=== PATIENT | male | born 1965 | race Two or more races ===

== ENCOUNTER 2017-08-25 08:23 | Day surgery (SDC) | payer MEDICAID ==
[2017-08-18 14:49] LABS: Basophils # (auto) 0 uL; Basophils % (auto) 0.4 % (0.0-2.0); Eosinophils # (auto) 0.1 uL; Eosinophils % (auto) 0.9 % (0.0-7.0); Hematocrit 46.9 % (41.0-53.0); Hemoglobin 16.4 g/dL (13.5-17.5); Lymphocytes # (auto) 2.3 uL; Lymphocytes % (auto) 29.9 % (10.0-50.0); Mean Corpuscular Hemoglobin 32.5 pg (28.0-32.0); Mean Corpuscular Hgb Conc. 34.9 g/dL (32.0-36.0); Mean Corpuscular Volume 93.1 fL (80.0-100.0); Mean Platelet Volume 7.4 fL (6.9-10.8); Monocytes # (auto) 0.5 uL; Monocytes % (auto) 6.5 % (0.0-12.0); Neutrophils # (auto) 4.7 uL; Neutrophils % (auto) 62.3 % (37.0-80.0); Platelet Count (auto) 274 10^3/uL (140-450); Red Cell Distribution Width 13.7 % (11.8-14.3); White Blood Cell 7.5 10^3/uL (4.4-10.8)
[2017-08-18 15:00] LABS: INR 0.96 (0.9-1.15); Partial Thromboplastin Time 26.7 sec (22.64-33.71); Prothrombin Time 10.5 sec (9.37-12.3)
[~2017-08-25] VITALS: Ht 175.3 cm; Wt 68.0 kg
[~2017-08-25 08:23] MED LIST: ESOM40CA39 PO; HYDR12.56 PO; VARE1TAB PO
[2017-08-25] MEDS ORDERED: SODIUM CHLORIDE LOCK 10 ML ONE (08:30)
[2017-08-25] MEDS ORDERED: diphenhdrAMINE HCL 50 MG/1 ML VL ONE (08:30)
[2017-08-25] MEDS ORDERED: ONDANSETRON HCL 4 MG/2 ML VIAL ONE (09:32)
[2017-08-25] MEDS: fentaNYL CITRATE 100 MCG/2 ML VL ONE ×2 (09:34→09:38)
[2017-08-25] MEDS: MIDAZOLAM HCL 5 MG/ML-1ML VIAL ONE ×2 (09:34→09:38)
[2017-08-25 10:38] VITALS: BP 121/77
== END 2017-08-25 10:47 | disposition home or self-care (01) ==
LOC: GI 08:23
PROVIDERS: ATTEND Internal Medicine Gastroenterology
DX: Z12.11 Encounter for screening for malignant neoplasm of colon (principal); K64.8 Other hemorrhoids; F17.210 Nicotine dependence, cigarettes, uncomplicated
CPT/HCPCS: 45378; J1200; J3010; J7030; 36415; 85025; 85610; 85730; J2250; J2405

== ENCOUNTER 2018-12-18 21:16 | Emergency (ER) | payer MEDICAID ==
[~2018-12-18] VITALS: Ht 177.8 cm; Wt 68.0 kg
[2018-12-18 23:06] LABS: Basophils # (auto) 0 uL; Basophils % (auto) 0.3 % (0.0-2.0); Eosinophils # (auto) 0 uL; Eosinophils % (auto) 0.5 % (0.0-7.0); Hematocrit 45.2 % (41.0-53.0); Hemoglobin 15.9 g/dL (13.5-17.5); Lymphocytes # (auto) 1.8 uL; Lymphocytes % (auto) 34.8 % (10.0-50.0); Mean Corpuscular Hemoglobin 31.9 pg (28.0-32.0); Mean Corpuscular Hgb Conc. 35.2 g/dL (32.0-36.0); Mean Corpuscular Volume 90.6 fL (80.0-100.0); Monocytes # (auto) 0.6 uL; Monocytes % (auto) 11.5 % (0.0-12.0); Neutrophils # (auto) 2.7 uL; Neutrophils % (auto) 52.9 % (37.0-80.0); Nucleated Red Blood Cells % 0.1 %; Platelet Count (auto) 229 10^3/uL (140-450); Red Blood Cells 4.99 10^6/uL (4.5-5.90); Red Cell Distribution Width 13.5 % (11.8-14.3)
[2018-12-18 23:25] LABS: INR 0.89 (0.9-1.15); Partial Thromboplastin Time 28.9 sec (23.78-33.04); Prothrombin Time 9.6 sec (9.27-12.13)
[2018-12-18 23:26] LABS: Alanine Aminotransferase 45 U/L (16-61); Albumin 3.4 g/dL (3.4-5.0); Anion Gap 11 (5-15); Aspartate Aminotransferase 31 U/L (15-37); BUN/Creatinine Ratio 16.5; Blood Urea Nitrogen 17 mg/dL (7-18); Calcium 8.1 mg/dL (8.5-10.1); Carbon Dioxide 26 mmol/L (21-32); Chloride 99 mmol/L (98-107); GFR African American 98 mL/min; GFR Non-African American 81 mL/min; Glucose 100 mg/dL (74-106); Magnesium 2.1 mg/dL (1.6-2.6); Potassium 3.4 mmol/L (3.5-5.1); Sodium 136 mmol/L (136-145)
[2018-12-18 23:42] LABS: Alkaline Phosphatase 78 U/L (45-117); Bilirubin, Total 0.3 mg/dL (0.2-1.0); Total Protein 7.3 g/dL (6.4-8.2)
[2018-12-19 01:31] VITALS: BP 124/80
== END 2018-12-19 01:42 | disposition home or self-care (01) ==
LOC: ER 21:24
DX: J20.9 Acute bronchitis, unspecified (principal); K21.9 Gastro-esophageal reflux disease without esophagitis; I10 Essential (primary) hypertension; F17.210 Nicotine dependence, cigarettes, uncomplicated
CPT/HCPCS: 36415; 71046; 80053; 83735; 83880; 84484; 85025; 85379; 85610; 85730; 93005